=== PATIENT | female | born 1955 | race African-American/Black ===

== ENCOUNTER 2017-06-17 11:23 | Emergency (ER) | payer BC ==
[~2017-06-17] VITALS: Ht 170.2 cm; Wt 90.0 kg
[~2017-06-17 11:23] MED LIST: ALBU6.7H INH; ESTR0.5T9 PO; LISI-360 PO; SYNT88TA PO; VENTAER INH
[2017-06-17 11:24] VITALS: BP 151/72; PULSE 72; RESP 15; TEMP 98.6; O2SAT 98
--- NOTE | 2017-06-17 11:48 | PD ---
Physical Exam Time Seen by Provider: 11:47 Narrative 61 y/o female here with some difficulty swallowing for the past 2-3 days. Vital signs reviewed. Seen at triage desk. Awaiting bed placement. Data Data Last Documented VS Vital Signs Date Time Temp Pulse Resp B/P Pulse Ox O2 Delivery O2 Flow Rate FiO2 06/17/17 11:24 98.6 72 15 151/72 98 MDM Medical Record Reviewed: Yes Supervised Visit with QUIN: Pancho Wolfe Jun 17, 2017 11:48
[2017-06-17] MEDS ORDERED: SYNT88TA PO (12:26)
[2017-06-17] MEDS ORDERED: ESTR0.5T PO (12:26)
[2017-06-17] MEDS ORDERED: VENTAER INH (12:26)
[2017-06-17] MEDS ORDERED: CHLO25TA2 PO (12:26)
--- NOTE | 2017-06-17 12:38 | PD ---
HPI Chief Complaint: Allergic/Adverse Reaction Time Seen by Provider: 12:38 Travel History International Travel<30 days: No Contact w/Intl Traveler<30days: No Traveled to known affect area: No History of Present Illness HPI 61-year-old female presents to emergency Department with complaint of difficulty swallowing 2-3 days. She says she can swallow her own saliva but it is difficult. Denies throat pain. Feels like she has something stuck in her throat. States she had similar symptoms while she was taking lisinopril and she was switched to another medication with resolution of symptoms. Doesn' t know if her current symptoms may be related to the current blood pressure medication that she has been taking for the last 3 months. Denies airway edema , tongue edema, difficulty breathing, shortness of breath. Interims are moderate in severity. Has no other medical complaints. No known allergies. No other modifying factors or associated signs and symptoms. PFSH Past Medical History Asthma: Yes Heart Rhythm Problems: Yes (ONLY FROM [place]) Cardiac Catheterization: No Cardiovascular Problems: Yes (HTN) High Cholesterol: No Congestive Heart Failure: No Diabetes: No Diminished Hearing: No Hypertension: Yes Respiratory: Yes Immunizations Current: Yes Myocardial Infarction: No ?: Not Menopausal: Yes Past Surgical History Coronary Artery Bypass Graft: No Hysterectomy: Yes Family History Family Myocardial Infarction: Yes (GRANDMOTHER) Social History Alcohol Use: Yes (OCC) Tobacco Use: No Substance Use: No Allergies-Medications (Allergen,Severity, Reaction): Coded Allergies: No Known Allergies (Verified , 06/17/17) Reported Meds & Prescriptions Reported Meds & Active Scripts Active Reported Chlorthalidone 25 Mg Tab 25 Mg PO DAILY Synthroid (Levothyroxine Sodium) 88 Mcg Tab 88 Mcg PO DAILY Estradiol 0.5 Mg Tab 0.5 Mg PO DAILY Ventolin Hfa 18 GM Inh (Albuterol Sulfate) 90 Mcg/Act Aer 2 Puff INH Q4H PRN Review of Systems Except as stated in HPI: all other systems reviewed are Neg Physical Exam Narrative GENERAL: Well-nourished, well-developed female patient, in no acute distress SKIN: Warm and dry. HEAD: Atraumatic. Normocephalic. EYES: Pupils equal and round . No scleral icterus. No injection or drainage. ENT: Mucosa pink and moist. No erythema or exudates. No uvular edema. No uvular , palatal, or tonsillar deviation. Airway patent. Nasal turbinates appear normal without nasal blood, purulent drainage or septal hematoma. NECK: Trachea midline. CARDIOVASCULAR: Regular rate. RESPIRATORY: No accessory muscle use. GASTROINTESTINAL: Rounded. MUSCULOSKELETAL: No obvious deformities. No clubbing. No cyanosis. No edema. NEUROLOGICAL: Awake and alert. Oriented 3. No obvious cranial nerve deficits. Motor grossly within normal limits. Normal speech. PSYCHIATRIC: Appropriate mood and affect; insight and judgment normal. Data Data Last Documented VS Vital Signs Date Time Temp Pulse Resp B/P Pulse Ox O2 Delivery O2 Flow Rate FiO2 06/17/17 11:24 98.6 72 15 151/[address] Soft Tiss Neck W/O Iv Cont (06/17/17 ) Diphenhydramine (Benadryl) (06/17/17 12:45) Ranitidine Liq (Zantac Liq) (06/17/17 12:45) Dexamethasone Inj (Decadron Inj) (06/17/17 12:45) Famotidine (Pepcid) (06/17/17 13:00) MDM Medical Decision Making Medical Screen Exam Complete: Yes Emergency Medical Condition: Yes Medical Record Reviewed: Yes Differential Diagnosis food bolus, foreign body sensation in throat, foreign body in throat, allergic reaction, less likely peritonsillar abscess Narrative Course 61-year-old female with foreign body sensation in her throat for the last 2-3 days with worsening. Has been having difficulty swallowing. I did a swallow evaluation at the bedside and the patient is able to swallow fluids without coughing, choking, gagging, regurgitation. I spoke with Dr. Avalos, my attending physician, and she recommended CT soft tissue neck to rule out foreign body and to treat the patient for possible allergic reaction with Pepcid, Benadryl, and dexamethasone 10 mg. 1453: CT soft tissue neck with no acute findings. Patient provided a copy of the CT report. 1458: The patient states after she received the concoction of medications were administered earlier she is now able to swallow easier. She does still have the sensation of a foreign body in her throat, but says is easier for her to swallow. Deltasone prescribed for home. Patient to continue Benadryl as directed and as needed for symptom management. Instructed patient to follow up with primary care provider in regards to possible medication change. Instruct the patient to follow up with ENT. Instructed patient to follow up with primary care provider. Patient verbalizes understanding and agreement with treatment plan. Patient is medically cleared and stable for discharge. Discussed reasons to return to the emergency department. Patient agrees with treatment plan. The patients vital signs are stable and the patient is stable for outpatient follow-up and treatment. Patient discharged home, stable and in no acute distress. Diagnosis Primary Impression: Foreign body sensation in throat Referrals: Ear / Nose / Throat Specialist Primary Care Physician Patient Instructions: General Instructions Additional Instructions: Follow-up with primary care provider Follow-up with ear nose throat specialist Return to the emergency department immediately with worsening of symptoms Med/Other Pt SpecificInfo: Prescription(s) given Scripts Prednisone (Deltasone)20 Mg Tab40 Mg PO DAILY 5 Days Ref 0 start 06/18/2017 Prov:Rosette Ruiz 06/17/17 Disposition: DISCHARGE HOME Condition: Stable Rosette Ruiz Jun 17, 2017 12:38
[2017-06-17] MEDS ORDERED: RANITIDINE HCL SYRUP 150 MG/10 ML UDC PO ONE (12:45)
[2017-06-17] MEDS ORDERED: DEXAMETHASONE SOD PHOS 20 MG/5 ML VIAL IM ONE (12:45)
[2017-06-17] MEDS ORDERED: diphenhydrAMINE HCL 50 MG CAP PO ONE (12:45)
[2017-06-17] MEDS ORDERED: FAMOTIDINE 20 MG TAB PO ONE (13:00)
--- NOTE | 2017-06-17 14:39 | RADRPT ---
EXAM DATE/TIME: 06/17/2017 14:18 [facility] COMPARISON: No previous studies available for comparison. INDICATIONS : Patient has had issues with swallowing for the last two days. RADIATION DOSE: 15.65 CTDIvol (mGy) MEDICAL HISTORY : Hypertension. Asthma. SURGICAL HISTORY : Hysterectomy. ENCOUNTER: Initial ACUITY: 2 days PAIN SCORE: 3/10 LOCATION: Bilateral mid neck region. TECHNIQUE: Volumetric scanning of the neck was performed. Using automated exposure control and adjustment of th e mA and/or kV according to patient size, radiation dose was kept as low as reasonably achievable to obtain optimal diagnostic quality images. DICOM format image data is available electronically for re view and comparison. The lack of IV contrast limits the diagnosis for certain organ pathology. FINDINGS: NASOPHARYNX: The nasopharyngeal airway has a normal configuration. No mucosal thickening or mass is seen. OROPHARYNX: The intrinsic muscles of the tongue are symmetric. The tonsillar pillars are intact. The prevertebr al soft tissues are not thickened. LARYNX: The supraglottic, glottic, and infraglottic structures are intact. PARAPHARYNGEAL: The parapharyngeal space is intact. SALIVARY GLANDS: The parotid and submandibular glands are intact. LYMPH NODES: No enlarged or necrotic-appearing nodes. THYROID: Homogeneous enhancement without evidence of nodule. BONES: Unremarkable. CONCLUSION: Unremarkable examination. Amaury Muñiz MD on June 17, 2017 at 14:35 Board Certified Radiologist. This report was verified electronically.
[2017-06-17] MEDS ORDERED: PRED-503 PO (14:58)
== END 2017-06-17 15:15 | disposition home or self-care (01) ==
LOC: NEPK 11:23
DX: R09.89 Other specified symptoms and signs involving the circulatory and respiratory systems (principal); R13.10 Dysphagia, unspecified; I10 Essential (primary) hypertension
CPT/HCPCS: 70490; 96372; 99285; J1100; Q0163